=== PATIENT | male | born 2000 | race African-American/Black ===

== ENCOUNTER 2023-11-16 23:33 | Emergency (ER) | payer MEDICAID, OTHER ==
[~2023-11-16] VITALS: Ht 177.8 cm; Wt 70.0 kg
[2023-11-16 23:39] VITALS: PULSE 84; RESP 23; O2SAT 95
[2023-11-16] MEDS: levETIRAcetam 1000 mg/100ml 100 ML IV ONE (23:52)
[2023-11-16] MEDS: SODIUM CHLORIDE 0.9% 1,000 ML IV ONE (23:52)
[2023-11-17 00:03] LABS: Basophils # (auto) 0 10 ^3/uL (0-0.2); Basophils % (auto) 0.6 % (0.0-2.0); Eosinophils # (auto) 0.1 10 ^3/uL (0-0.8); Eosinophils % (auto) 1.3 % (0.0-7.0); Hematocrit 41.6 % (41.0-53.0); Hemoglobin 13.7 g/dL (13.5-17.5); Lymphocytes # (auto) 1.1 10 ^3/uL (0.4-5.4); Lymphocytes % (auto) 14.5 % (10.0-50.0); Monocytes # (auto) 0.3 10 ^3/uL (0-1.3); Monocytes % (auto) 4.6 % (0.0-12.0); Red Cell Distribution Width 12.8 % (11.8-14.3); White Blood Cell 7.6 10^3/uL (4.4-10.8)
[2023-11-17 00:32] LABS: Alanine Aminotransferase 22 U/L (7-40); Albumin 4.4 g/dL (3.2-4.8); Alkaline Phosphatase 55 U/L (46-116); Anion Gap 9 (5-15); Aspartate Aminotransferase 20 U/L (13-40); BUN/Creatinine Ratio 11.8 (10.0-20.0); Blood Urea Nitrogen 13 mg/dL (9-23); Calcium 9.8 mg/dL (8.7-10.4); Carbon Dioxide 23 mmol/L (20-30); Chloride 107 mmol/L (98-107); Glucose 103 mg/dL (74-106); Potassium 3.8 mmol/L (3.5-5.1); Sodium 139 mmol/L (136-145)
[2023-11-17 00:33] LABS: Bilirubin, Total 0.7 mg/dL (0.2-1.0); Total Protein 7.3 g/dL (5.7-8.2)
[2023-11-17 05:00] VITALS: BP 106/60; PULSE 58; RESP 15; TEMP 97.6; O2SAT 96
== END 2023-11-17 05:56 | disposition home or self-care (01) ==
LOC: EDBD 23:33 → ER 23:33
DX: G40.909 Epilepsy, unspecified, not intractable, without status epilepticus (principal)
CPT/HCPCS: 36415; 80053; 84484; 85025; 96365; 99285; J1953; J7030

== ENCOUNTER 2024-02-08 01:50 | Emergency (ER) | payer MEDICAID ==
[~2024-02-08] VITALS: Ht 180.3 cm; Wt 65.0 kg
[2024-02-08 01:51] VITALS: BP 159/89; PULSE 80; RESP 20; TEMP 97.8; O2SAT 96
[2024-02-08] MEDS: NEOMYCIN-BACITRACIN-POLYM 15GM TOP OINT TOP ONE (03:29)
[2024-02-08] MEDS ORDERED: NABU-72 PO (03:31)
[2024-02-08] MEDS ORDERED: MUPI2OIN2 TOP (03:31)
== END 2024-02-08 03:43 | disposition home or self-care (01) ==
LOC: ER 01:50 → EDBD 01:50 → ER 03:43
DX: S60.512A Abrasion of left hand, initial encounter (principal); S60.511A Abrasion of right hand, initial encounter; F15.90 Other stimulant use, unspecified, uncomplicated; Z88.8 Allergy status to other drugs, medicaments and biological substances; Z79.899 Other long term (current) drug therapy; W01.0XXA Fall on same level from slipping, tripping and stumbling without subsequent striking against object, initial encounter; Y93.89 Activity, other specified; Y92.89 Other specified places as the place of occurrence of the external cause; Y99.8 Other external cause status

== ENCOUNTER 2024-09-05 10:10 | Inpatient (IN) | payer MEDICAID ==
[~2024-09-05] VITALS: Ht 175.3 cm; Wt 95.9 kg
[~2024-09-05 10:10] MED LIST: MUPI2OIN2 TOP; NABU-72 PO
--- NOTE | 2024-09-05 10:46 | ED.PDOC ---
HPI (NEURO) HPI Comments 23 year old male accompanied by mother presents to the ED with chief complaint of seizures. Mother reports that the patient has been experiencing increased focal seizures as of lately along with associated nausea and general malaise. Mother relays that patient had told her he needed to go to the ED due to feeling very unwell. Mother states patient's psychiatrist increased his dose of olanzapine and Risperidone recently, which has since then made him feel generally unwell. Patient denies any headache, chest pain, SOB, dizziness, vomiting, or head injury. Chief Complaint: Seizure Time Seen by MD: 10:42 Reviewed Notes: Nurses Notes, Medications, Allergies Information Source: Patient, Relative (Mother) Mode of Arrival: Ambulatory Severity: Moderate Timing: Hours Duration: Minutes Prehospital treatment: None Seizure Quality: Focal Seizure Location: Head Onset: At rest Circumstances: Spontaneous During: LOC After: Normal Mentation History of: Seizure Disorder Past Medical History PAST MEDICAL HISTORY: Anxiety, Depression, Seizures Past Medical History (Other): Bipolar Surgical History: Denies all surgeries Family History Family History: Unknown Social History Smoker: Non-Smoker Alcohol: Denies ETOH Use Drugs: Marijuana Lives In: Home Constitutional: reports: malaise; denies: chills, diaphoresis, fatigue, fever, sweats, weakness, others EENTM: denies: blurred vision, double vision, ear bleeding, ear discharge, ear drainage, ear pain, ear ringing, eye pain, eye redness, hearing loss, mouth pain, mouth swelling, nasal discharge, nose bleeding, nose congestion, nose pain, photophobia, tearing, throat pain, throat swelling, voice changes, others Respiratory: denies: cough, hemoptysis, orthopnea, SOB at rest, shortness of breath, SOB with excertion, stridor, wheezing, others Cardiovascular: denies: chest pain, dizzy spells, diaphoresis, Dyspnea on exertion, edema, irregular heart beat, left arm pain, lightheadedness, palpitations, PND, syncope, others Gastrointestinal: reports: nausea; denies: abdomen distended, abdominal pain, blood streaked bowels, constipated, diarrhea, dysphagia, difficulty swallowing, hematemesis, melena, poor appetite, poor fluid intake, rectal bleeding, rectal pain, vomiting, others Genitourinary: denies: burning, dysuria, flank pain, frequency, hematuria, incontinence, penile discharge, penile sore, pain, testicle pain, testicle swelling, urgency, others Neurological: reports: seizure; denies: dizziness, fainting, headache, left sided numbness, left sided weakness, numbness, paresthesia, pre-existing deficit, right sided numbness, right sided weakness, speech problems, tingling, tremors, weakness, others Musculoskeletal: denies: back pain, gout, joint pain, joint swelling, muscle pain, muscle stiffness, neck pain, others Integumetry: denies: bruises, change in color, change in hair/nails, dryness, laceration, lesions, lumps, rash, wounds, others Allergic/Immunocompromised: denies: Difficulty Healing, Frequent Infections, Hives, Itching, others Hematologic/Lymphatic: denies: anemia, blood clots, easy bleeding, easy bruising, swollen glands, others Endocrine: denies: excessive hunger, excessive sweating, excessive thirst, excessive urination, flushing, intolerance to cold, intolerance to heat, unexpla ined weight gain, unexplained weight loss, others Psychiatric: denies: anxiety, bipolar disorder, depression, hopeless, panic disorder, schizophrenia, sleepless, suicidal, others All Other Systems: Reviewed and Negative Physical Exam General Appearance: Moderate Distress, Normal HEENT: Normal ENT Inspection, PERRL/EOMI Neck: Full Range of Motion, Non-Tender, Normal, Normal Inspection Respiratory: Chest Non-Tender, Lungs Clear, No Accessory Muscle Use, No Respiratory Distress, Normal Breath Sounds Cardiovascular: No Edema, No JVD, No Murmur, No Gallop, Normal Peripheral Pulses, Regular Rate/Rhythm Breast Exam: Deferred Gastrointestinal: No Organomegaly, Non Tender, No Pulsatile Mass, Normal Bowel Sounds, Soft Genitalia: Deferred Pelvic: Deferred Rectal: Deferred Extremities: No calf tenderness, Normal capillary refill, Normal inspection, Normal range of motion, Non-tender, No pedal edema Musculoskeletal : Apperance: Normal Neurologic: Disoriented (Postictal), No Motor Deficits, Normal Affect, Normal Mood, No Sensory Deficits Cerebellar Function: NOT DONE Reflexes: NOT DONE Skin: Dry, Normal Color, Warm Peripheral Pulses: 3+ Radial (R), 3+ Radial (L) Lymphatic: No Adenopathy Was a procedure done? Was a procedure done?: No Differential Diagnosis (SZ) Seizure: Psychogenic Seizure, Closed Head Injury, CVA/TIA X-Ray, Labs, Meds, VS Vital Signs Date Time Temp Pulse Resp B/P (MAP) Pulse Ox O2 Delivery O2 Flow Rate FiO2 09/05/24 10:37 98.4 68 16 130/89 (103) 98 Patient postictal. History of seizure. Mother at bedside. Vitals stable. Was given Ativan. Establish intravenous access. Was given fluids pain History of seizure. History of bipolar disorder. No sign of any injury. Reviewed his previous visit. Explained to the family. Continue cardiac monitoring. Time of 1ST Reevaluation: 11:42 Reevaluation 1ST: Unchanged Patient Education/Counseling: Diagnosis, Treatment Family Education/Counseling: Diagnosis, Treatment Additional Information I reviewed the following notes from patient's past medical encounters: 11/16/23 for seizure The following tests were ordered, and results were reviewed by me: (Labs, XY, EKG) Additional Information was gathered from interviewing the following independent historians: Mother I discussed treatment and results with medical personnel and family. Departure 1 Departure Time of Disposition: 11:29 Impression: Primary Impression: Seizure Disposition: 09 ADMITTED INPATIENT Admit to: Med Surg Condition: Guarded Critical Care Note Critical Care Time?: Yes (45 min-critical care time only) Stability Stability form required: No Heart Score Heart Score: Heart Score Response (Comments) Value History N/A 0 EKG N/A 0 Age N/A 0 Risk Factors N/A 0 Troponin N/A 0 Total 0 I personally scribed for JENNA LERMA MD ([email or web address]) on 09/05/24 at 10:46. Electronically submitted by Ernie King ([email or web address]). I personally scribed for JENNA LERMA MD ([email or web address]) on 09/05/24 at 10:47. Electronically submitted by Ernie King ([email or web address]). JENNA LERMA MD Sep 05, 2024 10:46
[2024-09-05 11:42] VITALS: PULSE 66; RESP 17; O2SAT 96
[2024-09-05] MEDS: SODIUM CHLORIDE 0.9% 1,000 ML IV ONE (11:48)
[2024-09-05 11:54] LABS: Basophils # (auto) 0 10 ^3/uL (0-0.2); Basophils % (auto) 0.5 % (0.0-2.0); Eosinophils # (auto) 0.2 10 ^3/uL (0-0.8); Eosinophils % (auto) 1.7 % (0.0-7.0); Hematocrit 42.1 % (41.0-53.0); Lymphocytes # (auto) 1.5 10 ^3/uL (0.4-5.4); Lymphocytes % (auto) 15.1 % (10.0-50.0); Mean Corpuscular Hemoglobin 28.1 pg (28.0-32.0); Mean Corpuscular Hgb Conc. 33.2 g/dL (32.0-36.0); Mean Corpuscular Volume 84.6 fL (80.0-100.0); Monocytes # (auto) 0.7 10 ^3/uL (0-1.3); Monocytes % (auto) 6.6 % (0.0-12.0); Neutrophils # (auto) 7.6 10 ^3/uL (1.6-8.6); Neutrophils % (auto) 76.1 % (37.0-80.0); Platelet Count (auto) 273 10^3/uL (140-450); Red Blood Cells 4.98 10^6/uL (4.5-5.90); Red Cell Distribution Width 12.8 % (11.8-14.3); White Blood Cell 9.9 10^3/uL (4.4-10.8)
[2024-09-05] MEDS: LORazepam 2MG/ML-1ML VIAL IV ONE ×2 (11:59→23:17)
[2024-09-05 12:15] LABS: Chloride 106 mmol/L (98-107); Potassium 3.9 mmol/L (3.5-5.1); Sodium 138 mmol/L (136-145)
[2024-09-05 12:16] LABS: Anion Gap 4 (5-15); Carbon Dioxide 28 mmol/L (20-31)
[2024-09-05 12:21] LABS: Blood Urea Nitrogen 9 mg/dL (9-23); Glucose 98 mg/dL (74-106)
[2024-09-05] MEDS: levETIRAcetam 1000 mg/100ml 100 ML IV ONE (13:48)
[2024-09-05] MEDS: LORazepam 2MG/ML-1ML VIAL ONE ×2 (17:08→23:11)
[2024-09-05] MEDS ORDERED: OLAN1TAB19 PO (18:08)
[2024-09-05] MEDS ORDERED: HYDR25TA5 PO (18:08)
[2024-09-05] MEDS ORDERED: FLUO40CA PO (18:08)
--- NOTE | 2024-09-05 18:22 | DVHHP2 ---
History of Present Illness Reason for Visit: Nausea, malaise, and seizures x1 day History of Present Illness Ewa Noonan is a 23-year-old male with past medical history of hypertension, anxiety, depression, bipolar disorder, and seizures who presents to the ED for nausea, malaise, and seizures x1 day. Mom reports that patient had seen the psychiatrist recently when had an increase in his olanzapine and also fluoxetine. She reports that she told the psychiatrist olanzapine cause frequent seizures and she believes that the increase in seizures occurred from the increase in dosage. Mom states that patient is compliant with his medications. She also reports that he smokes marijuana, but does not smoke cigarettes or drink or do any other illicit drugs. Mom denies any chest pain, shortness of breath, fever, chills, abdominal pain, vomiting, and diarrhea. Mom also reports no recent injury or trauma to patient. Mom also reports that recently when she saw the neurologist they had ordered and patient also completed a CT head, labs, and an EEG. She reports that the next appointment is on September 22, 2024. Cardiovascular: HTN Psych: Anxiety, Bipolar, Depression Past Surgical History: None Family History: None Smoke: No ALCOHOL: none Drugs: Marijuana Lives: with Family Domestic Violence: Neg Review of Systems Constitutional: No: Fever, Chills, Sweats, Weakness, Malaise, Other Eyes: No: Pain, Vision change, Conjunctivae inflammation, Eyelid inflammation, Other, Redness ENT: No: Ear pain, Ear discharge, Nose pain, Nose discharge, Nose congestion, Mouth pain, Mouth swelling, Throat pain, Throat swelling, Other Respiratory: No: Cough, Dry, Shortness of breath, SOB with excertion, Wheezing, Hemoptysis, Pleuritic Pain, Sputum, Wheezing, Other Cardiovascular: No: Chest Pain, Palpitations, Orthopnea, Paroxysmal Noc. Dyspnea, Edema, Lt Headedness, Other Gastrointestinal: No: Nausea, Vomiting, Abdominal Pain, Diarrhea, Constipation, Melena, Hematochezia, Other Genitourinary: No Dysuria, No Frequency, No Incontinence, No Hematuria, No Retention, No Other Musculoskeletal: No: other, neck pain, shoulder pain, arm pain, back pain, hand pain, leg pain, foot pain Skin: No: Rash, Lesions, Jaundice, Bruising, Other Neurological: Seizures, Other (Per mom she is reports short-term memory loss); No: Weakness, Numbness, Incoordination, Change in speech, Confusion Allergies: Coded Allergies: Diphenhydramine (Verified Allergy, Unknown, 11/16/23) Ibuprofen (Verified Allergy, Unknown, 09/05/24) Medications Current Medications Medications Dose Ordered Sig/Dani Route Start Time Stop Time Status Last Admin Dose Admin Levetiracetam 100 ml @ 400 mls/hr BID IV 09/05/24 22:00 UNV Sodium Chloride 1,000 ml @ 75 mls/hr [id number] IV 09/05/24 18:15 UNV Exam Vital Signs Vital Signs Date Time Temp Pulse Resp B/P (MAP) Pulse Ox O2 Delivery O2 Flow Rate FiO2 09/05/24 16:00 73 16 108/73 (85) 98 09/05/24 11:42 Room Air* 0 21 09/05/24 11:10 98.4 98.4 General Appearance: No acute distress, Other (Patient resting at this time mom at bedside) HEENT: Atraumatic, PERRLA, EOMI, Mucous membr. moist/pink Respiratory: Clear to auscultation, Normal air movement Cardiovascular: Normal S1, Normal S2, No murmurs Abdominal: Normal bowel sounds, Soft, No tenderness, No hepatospenomegaly, No masses Extremities: No clubbing, No cyanosis, No edema, Normal pulses, No tenderness/swelling Skin: No rashes, No breakdown, No significant lesion Neuro: Normal tone, Sensation intact Labs/Xrays Labs Test 09/05/24 11:55 09/05/24 10:32 Range/Units Sodium Level 138 136-145 mmol/L Potassium Level 3.9 3.5-5.1 mmol/L Chloride Level 106 98-107 mmol/L Carbon Dioxide Level 28 20-31 mmol/L Anion Gap 4 L 5-15 Blood Urea Nitrogen 9 9-23 mg/dL Creatinine 0.90 0.700-1.30 mg/dL Glomerular Filtration Rate Calc 124 >90 mL/min BUN/Creatinine Ratio 10.0 10.0-20.0 Serum Glucose 98 74-106 mg/dL Calcium Level 10.0 8.7-10.4 mg/dL White Blood Count 9.9 4.4-10.8 10^3/uL Red Blood Count 4.98 4.5-5.90 10^6/uL Hemoglobin 14.0 13.5-17.5 g/dL Hematocrit 42.1 41.0-53.0 % Mean Corpuscular Volume 84.6 80.0-100.0 fL Mean Corpuscular Hemoglobin 28.1 28.0-32.0 pg Mean Corpuscular Hemoglobin Concent 33.2 32.0-36.0 g/dL Red Cell Distribution Width 12.8 11.8-14.3 % Platelet Count 273 140-450 10^3/uL Mean Platelet Volume 7.4 6.9-10.8 fL Neutrophils (%) (Auto) 76.1 37.0-80.0 % Lymphocytes (%) (Auto) 15.1 10.0-50.0 % Monocytes (%) (Auto) 6.6 0.0-12.0 % Eosinophils (%) (Auto) 1.7 0.0-7.0 % Basophils (%) (Auto) 0.5 0.0-2.0 % Neutrophils # (Auto) 7.6 1.6-8.6 10 ^3/uL Lymphocytes # (Auto) 1.5 0.4-5.4 10 ^3/uL Monocytes # (Auto) 0.7 0-1.3 10 ^3/uL Eosinophils # (Auto) 0.2 0-0.8 10 ^3/uL Basophils # (Auto) 0 0-0.2 10 ^3/uL Nucleated Red Blood Cells 0.0 % Assessment/Plan Assessment/Plan Assessment/Plan: Seizure Ativan given by ER Keppra given by ER NS IV fluids given by ER Labs A.m. labs Seizure precautions Neuro consult IV Keppra Chronic hypertension Continue home medications Chronic Anxiety Chronic Depression Chronic Bipolar disorder Continue home medications FEN/PPX diet IVf DVT ppx not indicated patient ambulating, SCDs PUD ppx not indicated no history of GERD or GI bleed Discussed plan of care with patient, mom, and nurse Admit to tele Home medications reconciled Plan discussed with: Patient My Orders Orders - KRISTAN FOURNIER Procedure Category Date Status Time * Neurology Consult CONS 09/05/24 Transmitted 17:31 Seizure Precautions ED NURSING 09/05/24 Transmitted Seizure Assessment STEPHANIE 09/05/24 In Process 17:31 Levetiracetam 1000 PHA 09/05/24 Logged Mg/100ml (Levetiracet 22:00 Sodium Chloride 0.9% PHA 09/05/24 Logged 18:15 Admit ADMIT 09/05/24 Transmitted 18:04 Allergies STEPHANIE 09/05/24 In Process 18:04 Code Status CODE 09/05/24 Transmitted 18:04 Complete Blood Count LAB 09/06/24 Verified 04:00 Comprehensive LAB 09/06/24 Verified Metabolic Panel 04:00 Cardiac DIET 09/05/24 Transmitted Diet-2gna,Lofat,Lochol Dinner Ondansetron Hcl PHA 09/05/24 Transmitted (Zofran) 18:15 Date of Service: Sep 05, 2024 Billing Provider: KRISTAN FOURNIER Common Visit Codes: [id number] INP/OBS CARE (MOD) KRISTAN FOURNIER Sep 05, 2024 18:22
[2024-09-05] MEDS: SODIUM CHLORIDE 0.9% 1,000 ML IV SCH (18:29)
[2024-09-05 19:30] VITALS: PULSE 81; RESP 16; O2SAT 96
[2024-09-05] MEDS: levETIRAcetam 1000 mg/100ml 100 ML IV SCH (21:30)
[2024-09-06] MEDS: LORazepam 2MG/ML-1ML VIAL IV PRN (00:56)
[2024-09-06] MEDS: ONDANSETRON HCL 4 MG/2 ML VIAL IV PRN (00:56)
[2024-09-06 04:06] LABS: Urine Bacteria None Seen /hpf (None Seen)
[2024-09-06 04:42] LABS: Urine Blood Negative /uL (Negative); Urine Clarity Turbid (Clear); Urine Color Light-Yellow (Yellow); Urine Mucus FEW (None Seen); Urine Protein, UAD TRACE (Negative); Urine Urobilinogen Normal (Negative); Urine WBC 2 /hpf (0 - 3)
[2024-09-06 08:00] VITALS: PULSE 137; RESP 22; O2SAT 96
[2024-09-06 09:51] LABS: Basophils # (auto) 0.1 10 ^3/uL (0-0.2); Basophils % (auto) 0.5 % (0.0-2.0); Eosinophils # (auto) 0.1 10 ^3/uL (0-0.8); Eosinophils % (auto) 1.1 % (0.0-7.0); Hematocrit 43.6 % (41.0-53.0); Hemoglobin 14.5 g/dL (13.5-17.5); Lymphocytes # (auto) 1.6 10 ^3/uL (0.4-5.4); Lymphocytes % (auto) 14.8 % (10.0-50.0); Mean Corpuscular Hemoglobin 27.9 pg (28.0-32.0); Mean Corpuscular Hgb Conc. 33.1 g/dL (32.0-36.0); Mean Corpuscular Volume 84.1 fL (80.0-100.0); Monocytes # (auto) 0.7 10 ^3/uL (0-1.3); Monocytes % (auto) 6.7 % (0.0-12.0); Neutrophils # (auto) 8.5 10 ^3/uL (1.6-8.6); Neutrophils % (auto) 76.9 % (37.0-80.0); Nucleated Red Blood Cells % 0.1 %; Platelet Count (auto) 268 10^3/uL (140-450); Red Blood Cells 5.19 10^6/uL (4.5-5.90); White Blood Cell 11.1 10^3/uL (4.4-10.8)
[2024-09-06 11:27] LABS: Anion Gap 8 (5-15)
[2024-09-06 11:32] LABS: BUN/Creatinine Ratio 8.5 (10.0-20.0)
[2024-09-06 11:40] LABS: Albumin 4.6 g/dL (3.2-4.8); Alkaline Phosphatase 134 U/L (46-116); Aspartate Aminotransferase 30 U/L (13-40); Bilirubin, Total 0.6 mg/dL (0.2-1.0); Blood Urea Nitrogen 9 mg/dL (9-23); Carbon Dioxide 24 mmol/L (20-31); Chloride 106 mmol/L (98-107); Glucose 76 mg/dL (74-106); Sodium 138 mmol/L (136-145); Total Protein 7.9 g/dL (5.7-8.2)
[2024-09-06 11:45] LABS: Alanine Aminotransferase 23 U/L (7-40); Potassium 4.8 mmol/L (3.5-5.1)
--- NOTE | 2024-09-06 14:42 | DVHPN2 ---
Reviewed: Care Plan, H&P, Labs, Medications, Previous Orders, Radiology Changes from previous H/P or p: No Changes Eyes: No Pain, No Vision change, No Conjunctivae inflammation, No Eyelid inflammation, No Other, No Redness ENT: No Ear pain, No Ear discharge, No Nose pain, No Nose discharge, No Nose congestion, No Mouth pain, No Mouth swelling, No Throat pain, No Throat swelling, No Other Cardiovascular: No Chest Pain, No Palpitations, No Orthopnea, No Paroxysmal Noc. Dyspnea, No Edema, No Lt Headedness, No Other Respiratory: No Cough, No Dry, No Shortness of breath, No SOB with excertion, No Wheezing, No Hemoptysis, No Pleuritic Pain, No Sputum, No Other Gastrointestinal: No Nausea, No Vomiting, No Abdominal Pain, No Diarrhea, No Constipation, No Melena, No Hematochezia, No Other Genitourinary: No Dysuria, No Frequency, No Incontinence, No Hematuria, No Retention, No Other Musculoskeletal: No other, No neck pain, No shoulder pain, No arm pain, No back pain, No hand pain, No leg pain, No foot pain Skin: No Rash, No Lesions, No Jaundice, No Bruising, No Other Objective Vitals Vital Signs Date Time Temp Pulse Resp B/P (MAP) Pulse Ox O2 Delivery O2 Flow Rate FiO2 09/06/24 10:59 92 09/06/24 09:25 97.9 22 165/81 (109) 96 97.9 09/06/24 08:00 Room Air* 0 21 Intake/Output Intake and Output 09/06/24 07:00 Intake Total 2100 ml Balance 2100 ml Intake IV Total 2100 ml Medications Current Medications Medications Dose Ordered Sig/Dani Route Start Time Stop Time Status Last Admin Dose Admin Levetiracetam 100 ml @ 400 mls/hr BID IV 09/05/24 22:00 09/06/24 09:44 400 MLS/HR Sodium Chloride 1,000 ml @ 75 mls/hr [id number] IV 09/05/24 18:15 09/06/24 09:07 75 MLS/HR Ondansetron HCl 4 mg Q6HPRN PRN IV 09/05/24 18:15 09/06/24 00:56 4 MG Lorazepam 2 mg Q1HP PRN IV 09/05/24 23:15 09/06/24 12:14 2 MG Laboratory Results Laboratory Tests 09/06/24 09:10 09/06/24 10:34 Chemistry Test 09/06/24 10:34 Albumin 4.6 g/dL (3.2-4.8) Calcium Level 10.0 mg/dL (8.7-10.4) Total Protein 7.9 g/dL (5.7-8.2) LFT Test 09/06/24 10:34 Alanine Aminotransferase (ALT) 23 U/L (7-40) Alkaline Phosphatase 134 U/L (46-116) H Aspartate Amino Transferase (AST) 30 U/L (13-40) Total Bilirubin 0.6 mg/dL (0.2-1.0) Urinalysis Test 09/06/24 04:00 Urine Color Light-yellow (Yellow) Urine Clarity Turbid (Clear) H Urine pH 5.0 (5.0-9.0) Urine Specific [place] 1.020 (1.001-1.035) Urine Protein Trace (Negative) H Urine Ketones Trace (Negative) Urine Blood Negative /uL (Negative) Urine Nitrite Negative (Negative) Urine Bilirubin Negative (Negative) Urine Urobilinogen Normal mg/dL (Negative) Urine Leukocyte Esterase Negative /uL (Negative) Urine RBC 1 /hpf (0 - 3) Urine WBC 2 /hpf (0 - 3) Urine Squamous Epithelial Cells None seen /hpf (<5) Urine Bacteria None seen /hpf (None Seen) Urine Mucus Few (None Seen) Urine Glucose Normal mg/dL (Normal) Labs and/or images reviewed: Labs reviewed by me, Image(s) reviewed by me Assessment/Plan Assessment/Plan Breakthrough seizures: Keppra : Consult by Neurology Dr. Witt History of seizures Hypertension Anxiety Depression Bipolar Marijuana use Time spent 45 minutes Plan discussed with: Patient My Orders Orders - VITALIY PÉREZ MD Procedure Category Date Status Time * Neurology Consult CONS 09/06/24 Verified 14:40 Date of Service: Sep 06, 2024 Billing Provider: VITALIY PÉREZ MD Common Visit Codes: [id number] INP/OBS CARE(HIGH) VITALIY PÉREZ MD Sep 06, 2024 14:42
[2024-09-06] MEDS: LORazepam 2MG/ML-1ML VIAL IV ONE ×2 (16:04→21:04)
--- NOTE | 2024-09-06 16:30 | DVH ---
EXAM: CT HEAD WITHOUT CONTRAST HISTORY: ALOC COMPARISON: None TECHNIQUE: Axial images were obtained and reformatted in coronal and sagittal planes. All CT scans at this medical facility are performed using dose modulation techniques as appropriate t o a performed exam including the following: Automated exposure control was utilized; adjustment of th e MA and/or KV according to patient size; and use of iterative reconstruction technique. CT Dose: CTDI volume is 53.39 mGy. Dose-length product is 855.88 mGy*cm FINDINGS: Supratentorial Region: No evidence for large acute territorial ischemia. No intracranial hemorrhage is noted. Posterior Fossa: No acute abnormality. Brainstem: Unremarkable. Sellar/Suprasellar Region: Unremarkable. Ventricles, Cisterns, Sulci: Age-appropriate. Orbits: Unremarkable. Paranasal Sinuses: Unremarkable. Mastoid Air Cells: Unremarkable. Vasculature: Subcentimeter filling defects are seen in the bilateral transverse sinuses near conflu ence with sigmoid sinuses that may represent arachnoid granulation or thrombi. Bones/Soft Tissues: No acute abnormality. Other: None. IMPRESSION: 1. No acute intracranial process. 2. Subcentimeter filling defects are seen in the bilateral transverse sinuses near confluence with si gmoid sinuses that may represent arachnoid granulation or thrombi. Further evaluation with MR venogra m global completed if clinically warranted.
[2024-09-06] MEDS: HALOPERIDOL LACTATE 5 MG/ML INJ VIAL IM PRN (17:10)
[2024-09-06] MEDS: HALOPERIDOL LACTATE 5 MG/ML INJ VIAL ONE (17:10)
[2024-09-06 19:30] VITALS: RESP 20; O2SAT 98
[2024-09-07 06:15] VITALS: TEMP 98
[2024-09-07 07:30] VITALS: RESP 20; O2SAT 98
--- NOTE | 2024-09-07 10:54 | DVHPN2 ---
Reviewed: Care Plan, H&P, Labs, Medications, Previous Orders, Radiology Changes from previous H/P or p: No Changes Eyes: No Pain, No Vision change, No Conjunctivae inflammation, No Eyelid inflammation, No Other, No Redness ENT: No Ear pain, No Ear discharge, No Nose pain, No Nose discharge, No Nose congestion, No Mouth pain, No Mouth swelling, No Throat pain, No Throat swelling, No Other Cardiovascular: No Chest Pain, No Palpitations, No Orthopnea, No Paroxysmal Noc. Dyspnea, No Edema, No Lt Headedness, No Other Respiratory: No Cough, No Dry, No Shortness of breath, No SOB with excertion, No Wheezing, No Hemoptysis, No Pleuritic Pain, No Sputum, No Other Gastrointestinal: No Nausea, No Vomiting, No Abdominal Pain, No Diarrhea, No Constipation, No Melena, No Hematochezia, No Other Genitourinary: No Dysuria, No Frequency, No Incontinence, No Hematuria, No Retention, No Other Musculoskeletal: No other, No neck pain, No shoulder pain, No arm pain, No back pain, No hand pain, No leg pain, No foot pain Skin: No Rash, No Lesions, No Jaundice, No Bruising, No Other Objective Vitals Vital Signs Date Time Temp Pulse Resp B/P (MAP) Pulse Ox O2 Delivery O2 Flow Rate FiO2 09/07/24 10:19 100 18 127/62 (83) 97 09/07/24 06:15 98.0 98.0 09/06/24 19:30 Room Air* 0 21 Medications Current Medications Medications Dose Ordered Sig/Dani Route Start Time Stop Time Status Last Admin Dose Admin Levetiracetam 100 ml @ 400 mls/hr BID IV 09/05/24 22:00 09/07/24 10:24 400 MLS/HR Sodium Chloride 1,000 ml @ 75 mls/hr [id number] IV 09/05/24 18:15 09/07/24 10:24 75 MLS/HR Ondansetron HCl 4 mg Q6HPRN PRN IV 09/05/24 18:15 09/07/24 02:46 4 MG Lorazepam 2 mg Q1HP PRN IV 09/05/24 23:15 09/07/24 06:03 2 MG Haloperidol Lactate 2.5 mg Q6HPRN PRN IM 09/06/24 17:10 09/07/24 06:07 2.5 MG Laboratory Results Laboratory Tests 09/06/24 09:10 09/06/24 10:34 Urinalysis Test 09/06/24 04:00 Urine Color Light-yellow (Yellow) Urine Clarity Turbid (Clear) H Urine pH 5.0 (5.0-9.0) Urine Specific [place] 1.020 (1.001-1.035) Urine Protein Trace (Negative) H Urine Ketones Trace (Negative) Urine Blood Negative /uL (Negative) Urine Nitrite Negative (Negative) Urine Bilirubin Negative (Negative) Urine Urobilinogen Normal mg/dL (Negative) Urine Leukocyte Esterase Negative /uL (Negative) Urine RBC 1 /hpf (0 - 3) Urine WBC 2 /hpf (0 - 3) Urine Squamous Epithelial Cells None seen /hpf (<5) Urine Bacteria None seen /hpf (None Seen) Urine Mucus Few (None Seen) Urine Glucose Normal mg/dL (Normal) Labs and/or images reviewed: Labs reviewed by me, Image(s) reviewed by me Assessment/Plan Assessment/Plan Breakthrough seizures: Keppra : Consult by Neurology Dr. Witt History of seizures Hypertension Anxiety Depression Bipolar Marijuana use counselling Time spent 46 minutes Mother at the bedside Plan discussed with: Patient My Orders Orders - VITALIY PÉREZ MD Procedure Category Date Status Time * Neurology Consult CONS 09/06/24 Transmitted 14:[address] 09/06/24 Resulted 15:09 Haloperidol Lactate PHA 09/06/24 In Process Injection (Haldol) 17:10 Date of Service: Sep 07, 2024 Billing Provider: VITALIY PÉREZ MD Common Visit Codes: [id number] INP/OBS CARE(HIGH) VITALIY PÉREZ MD Sep 07, 2024 10:54
--- NOTE | 2024-09-07 11:27 | DVHINCON2 ---
Date of service: Sep 07, [address] Cervantes Reason for Consultation Seizure History of Present Illness Mr. Noonan is a 23 years old not sure left-handed gentleman with a history of anxiety, depression, bipolar disorder, [place] [facility] [place] with a chief company of seizure activity. At this time, he was awake, oriented to person, place, he knows year and the month, but he was confused, he tries to get off the bed intermittently, but with a licensed to the advice, he does not know what happened to him before he came to hospital, he does not remember his home medications, he was me talked to his mother, but meanwhile, he is able to use his smart found to talk to his friend The following history is obtained from his smart He has a seizure disorder study in the early 2023. That will be further described. Before he came to the hospital, the patient was had event where he became nonresponsive briefly, and then later he had another one in that he become nonresponsive, eyes rolling back, shaking all over the body without biting or incontinence, Mother relates, since early 2023, he has events where he stopped talking, becomes unresponsive to the surroundings briefly, which has been more frequent recently, almost once every other week He has two events where he becomes nonresponsive, shaking all over the body without biting or incontinence, the 1st one happened in 02/2024, the 2nd one was on 09/05/2024 before he came to the hospital In the [age] of [age], the patient was had two seizures without fever, 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 No acute intracranial process. 2. Subcentimeter filling defects are seen in the bilateral transverse sinuses near confluence with sigmoid sinuses that may represent arachnoid granulation or thrombi. Further evaluation with MR venogram global completed if clinically warranted Past Medical History Depression, anxiety, seizure, bipolar disorder Past Surgical History None Family History Hypertension, diabetes Social History He is not tobacco a smoker, no history of alcohol or recreational substance abuse Allergies: Coded Allergies: Diphenhydramine (Verified Allergy, Unknown, 11/16/23) Ibuprofen (Verified Allergy, Unknown, 09/05/24) Home Meds Active Scripts Nabumetone (Nabumetone) 500 Mg Tab, 1 TAB PO BID PRN, #20 TAB Prov:GENEVIEVE MATHEW TOXICOLOGIST 02/08/24 Mupirocin (Pseudomonas Fluores (Mupirocin) 2 % Oin, 2 % TOP BID, #22 GRAMS Prov:GENEVIEVE MATHEW TOXICOLOGIST 02/08/24 Reported Medications Hctz (Hydrochlorothiazide) 25 Mg Tab, 1 TAB PO DAILY 09/05/24 Olanzapine (OLANZAPINE) 10 Mg Tab, 1 TAB PO 09/05/24 Fluoxetine Hcl (Fluoxetine Hcl) 40 Mg Cap, 1 CAP PO DAILY 09/05/24 Current Medications Current Medications Medications (Trade) Dose Ordered Sig/Dani Route PRN Reason Start Time Stop Time Status Last Admin Haloperidol Lactate (Haldol) 2.5 mg Q6HPRN PRN IM AGITATION 09/06/24 17:10 09/07/24 06:07 Review of Systems As above, the other systems negative Vital Signs Vital Signs Date Time Temp Pulse Resp B/P (MAP) Pulse Ox O2 Delivery O2 Flow Rate FiO2 09/07/24 11:00 91 14 165/86 (112) 96 09/07/24 06:15 98.0 98.0 09/06/24 19:30 Room Air* 0 21 Physical Exam GENERAL EXAM: General: the patient is well developed and nourished. No acute distress. HEENT: Normocephalic, neck is supple, no carotid bruits. No mass. RESPIRATORY: Normal respiratory effort with symmetrical lung expansion. Lungs clear to auscultation. CARDIOVASCULAR: Regular rate and rhythm with no murmurs. S1, S2. ABDOMEN: Soft, nontender, normal bowel sound NEUROLOGICAL: MENTAL STATUS: Awake and alert. Oriented to person, place, he knows year and month SPEECH, LANGUAGE, HIGHER CORTICAL FUNCTION: no aphasia or dysathria. CRANIAL NERVES: #2: Intact visual tapia to confrontation. The optic discs were sharp #3,4,6: Pupils are equal, round and reactive. EOMs full and conjugate. No nystagmus. #5: Facial sensation intact in all three divisions bilaterally. Mandibular strength intact. #7: Facial muscles symmetrical and strength intact. #8: Hearing grossly normal to voice. #9,10: Uvula and soft palate rise in the midline. Swallow and voice are normal. #11: Trapezius and sternomastoid strength intact bilaterally. #12: Tongue midline. No fasciculations or atrophy. SENSATION: Sensation to touch and pinprick is normal. MOTOR: Normal tone in the upper and lower extremity. Normal muscle bulk. No fasciculations. No abnormal movements or posturing. Muscle strength of the major groups in the upper extremities is 5/5. Muscle strength of the major groups in the lower extremities is 5/5. REFLEXES: Deep tendon reflexesare symmetrical. No pathological reflexes. CEREBELLAR/COORDINATION: Finger to nose is normal bilaterally. GAIT/STATION: deferred. Labs/Diagnostic Data Labs Test 09/06/24 10:34 09/06/24 09:10 09/06/24 04:00 Range/Units Sodium Level 138 136-145 mmol/L Potassium Level 4.8 3.5-5.1 mmol/L Chloride Level 106 98-107 mmol/L Carbon Dioxide Level 24 20-31 mmol/L Anion Gap 8 5-15 Blood Urea Nitrogen 9 9-23 mg/dL Creatinine 1.06 0.700-1.30 mg/dL Glomerular Filtration Rate Calc 102 >90 mL/min BUN/Creatinine Ratio 8.5 L 10.0-20.0 Serum Glucose 76 74-106 mg/dL Calcium Level 10.0 8.7-10.4 mg/dL Total Bilirubin 0.6 0.2-1.0 mg/dL Aspartate Amino Transferase (AST) 30 13-40 U/L Alanine Aminotransferase (ALT) 23 7-40 U/L Alkaline Phosphatase 134 H 46-116 U/L Total Protein 7.9 5.7-8.2 g/dL Albumin 4.6 3.2-4.8 g/dL White Blood Count 11.1 H 4.4-10.8 10^3/uL Red Blood Count 5.19 4.5-5.90 10^6/uL Hemoglobin 14.5 13.5-17.5 g/dL Hematocrit 43.6 41.0-53.0 % Mean Corpuscular Volume 84.1 80.0-100.0 fL Mean Corpuscular Hemoglobin 27.9 L 28.0-32.0 pg Mean Corpuscular Hemoglobin Concent 33.1 32.0-36.0 g/dL Red Cell Distribution Width 13.0 11.8-14.3 % Platelet Count 268 140-450 10^3/uL Mean Platelet Volume 7.4 6.9-10.8 fL Neutrophils (%) (Auto) 76.9 37.0-80.0 % Lymphocytes (%) (Auto) 14.8 10.0-50.0 % Monocytes (%) (Auto) 6.7 0.0-12.0 % Eosinophils (%) (Auto) 1.1 0.0-7.0 % Basophils (%) (Auto) 0.5 0.0-2.0 % Neutrophils # (Auto) 8.5 1.6-8.6 10 ^3/uL Lymphocytes # (Auto) 1.6 0.4-5.4 10 ^3/uL Monocytes # (Auto) 0.7 0-1.3 10 ^3/uL Eosinophils # (Auto) 0.1 0-0.8 10 ^3/uL Basophils # (Auto) 0.1 0-0.2 10 ^3/uL Nucleated Red Blood Cells 0.1 % Urine Color Light-yellow Yellow Urine Clarity Turbid H Clear Urine pH 5.0 5.0-9.0 Urine Specific [place] 1.020 1.001-1.035 Urine Protein Trace H Negative Urine Ketones Trace Negative Urine Blood Negative Negative /uL Urine Nitrite Negative Negative Urine Bilirubin Negative Negative Urine Urobilinogen Normal Negative mg/dL Urine Leukocyte Esterase Negative Negative /uL Urine RBC 1 0 - 3 /hpf Urine WBC 2 0 - 3 /hpf Urine Squamous Epithelial Cells None seen <5 /hpf Urine Bacteria None seen None Seen /hpf Urine Mucus Few None Seen Urine Glucose Normal Normal mg/dL Assessment Partial complex seizure Grand mal seizure Abdominal CT brain scan, to rule out tremors venous thrombosis and arachnoid granulation ? Mental retardation Plan/Recommendation Monitoring Supportive treatment Telemetry UDS EEG MRI head without MRV head Increase Keppra to 1500 b.i.d. Ativan for seizure breakthrough More recommend per clinical course He does not drive More recommendation per clinical course Progress: Poor This medical document was created using an electronic medical record system with [employer] computerized dictation system. Although this document has been carefully reviewed, there may still be some phonetic and typographical errors. These areas are purely typographical due to imperfections of the software programs, and do not reflect any compromise in the patient's medical care. Plan discussed with: NABEEL Laura MD Sep 07, 2024 11:27
[2024-09-07] MEDS: LORazepam 2MG/ML-1ML VIAL IV PRN (12:34)
[2024-09-07 15:00] VITALS: BP 142/97; PULSE 106; RESP 20; O2SAT 98
== END 2024-09-07 15:49 | disposition left against medical advice (07) | DRG 53 ==
LOC: ER 10:10 → UNDOADMIN 16:06 → TELE 16:06
PROVIDERS: ATTEND Family Medicine
DX: G40.209 Localization-related (focal) (partial) symptomatic epilepsy and epileptic syndromes with complex partial seizures, not intractable, without status epilepticus (principal); F12.90 Cannabis use, unspecified, uncomplicated; Z53.29 Procedure and treatment not carried out because of patient's decision for other reasons; F31.9 Bipolar disorder, unspecified; F41.9 Anxiety disorder, unspecified; I10 Essential (primary) hypertension; Z88.6 Allergy status to analgesic agent; Z82.49 Family history of ischemic heart disease and other diseases of the circulatory system; Z83.3 Family history of diabetes mellitus
CPT/HCPCS: 36415; 70450; 80048; 80053; 81001; 85025; 99291; G0378; J2405

== ENCOUNTER 2025-07-01 16:53 | Emergency (ER) | payer MEDICAID ==
[~2025-07-01] VITALS: Ht 180.3 cm; Wt 91.0 kg
[~2025-07-01 16:53] MED LIST changes: +FLUO40CA PO; +HYDR25TA5 PO; +OLAN1TAB19 PO
[2025-07-01 17:22] VITALS: BP 126/78; PULSE 84; TEMP 98.4; O2SAT 97
[2025-07-01 18:09] VITALS: RESP 18
[2025-07-01] MEDS ORDERED: ACET500T58 PO (18:40)
[2025-07-01] MEDS ORDERED: CEPH500C PO (18:40)
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
[2025-07-01] MEDS: TETANUS-DIPTH-ACEL PERTUSSIS 0.5ML SYR Tdap IM ONE (19:06)
== END 2025-07-01 19:28 | disposition home or self-care (01) ==
LOC: EDBD 16:53 → ER 16:53
DX: S61.412A Laceration without foreign body of left hand, initial encounter (principal); F12.90 Cannabis use, unspecified, uncomplicated; F41.9 Anxiety disorder, unspecified; F32.A Depression, unspecified; Z79.899 Other long term (current) drug therapy; Z88.6 Allergy status to analgesic agent; Y04.0XXA Assault by unarmed brawl or fight, initial encounter; Y93.89 Activity, other specified; Y92.89 Other specified places as the place of occurrence of the external cause; Y99.8 Other external cause status
CPT/HCPCS: 12002; 90471; 90715

== ENCOUNTER 2025-07-14 15:16 | Emergency (ER) | payer MEDICAID ==
[~2025-07-14] VITALS: Ht 175.3 cm; Wt 73.0 kg
[~2025-07-14 15:16] MED LIST changes: +ACET500T58 PO; +CEPH500C PO
[2025-07-14 15:23] VITALS: BP 168/100; PULSE 60; RESP 18; TEMP 98.3; O2SAT 100
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
[2025-07-14 16:26] LABS: Hematocrit 44.1 % (41.0-53.0); Hemoglobin 14.7 g/dL (13.5-17.5); Mean Corpuscular Hemoglobin 28.1 pg (28.0-32.0); Mean Corpuscular Volume 84.1 fL (80.0-100.0); Nucleated Red Blood Cells % 0.1 %
[2025-07-14 16:30] LABS: Chloride 103 mmol/L (98-107); Potassium 3.7 mmol/L (3.5-5.1)
[2025-07-14 16:31] LABS: Carbon Dioxide 25 mmol/L (20-31)
[2025-07-14 16:32] LABS: Calcium 10.0 mg/dL (8.7-10.4)
[2025-07-14 16:37] LABS: BUN/Creatinine Ratio 21.0 (10.0-20.0); Blood Urea Nitrogen 21 mg/dL (9-23); Lipase 27 U/L (12-53)
[2025-07-14 16:39] LABS: Glucose 111 mg/dL (74-106)
--- NOTE | 2025-07-14 16:42 | DVH ---
Indication: abd pain Technique: CT axial images of the abdomen and pelvis are obtained without contrast. Coronal and sagit joaquin reformats were obtained. Radiation Dose Information: CTDI volume is 11 mGy. Dose-length product is 583 mGy*cm Comparison: None FINDINGS: There is limited interpretation of the abdomen and pelvis without administration of intravenous contr ast. The lung bases demonstrate no pleural effusion. Adrenal glands, spleen, pancreas unremarkable in shape. Gallbladder contracted. Liver unremarkable in shape. Kidneys demonstrate no hydronephrosis, nephrolithiasis. Gastric distention. Small bowel loops are normal in caliber. Large bowel relatively nondistended. Normal appendix. Bladder partially distended. No free pelvic fluid. No inguinal lymphadenopathy. No aggressive osseous process. IMPRESSION: Limited evaluation without contrast. No evidence for obstructive uropathy. Gastric distention. Other findings as described.
[2025-07-14 17:04] LABS: Anion Gap 9 (5-15); Sodium 137 mmol/L (136-145)
[2025-07-14] MEDS ORDERED: OMEP-434 PO (17:11)
== END 2025-07-14 18:04 | disposition home or self-care (01) ==
LOC: EDBD 15:16 → ER 15:16
DX: K29.70 Gastritis, unspecified, without bleeding (principal); F41.9 Anxiety disorder, unspecified; F32.A Depression, unspecified; Z79.899 Other long term (current) drug therapy; Z88.6 Allergy status to analgesic agent
CPT/HCPCS: 36415; 74176; 80048; 83690; 85025